=== PATIENT | female | born 1975 | race Caucasian/White ===

== ENCOUNTER 2016-12-10 19:40 | Emergency (ER) | payer OTHER ==
[2016-12-10 19:58] VITALS: BP 121/68
--- NOTE | 2016-12-10 20:59 | RAD ---
INDICATION: Bilateral ankle pain COMPARISON: None. TECHNIQUE: 3 views of the each ankle were obtained. FINDINGS: There is symmetric soft tissue swelling overlying the fibular malleoli. Adjacent to the distal tip of the left fibular malleolus is focal bony density which could represent an avulsion injury in the correct clinical setting. The visualized bones are otherwise intact and appropriately aligned. IMPRESSION: SOFT TISSUE SWELLING OVERLYING THE BILATERAL FIBULAR MALLEOLI. BONY FOCI ADJACENT TO THE DISTAL TIP OF THE LEFT FIBULAR MALLEOLUS COULD BE AN AVULSION FRACTURE IN THE CORRECT CLINICAL SETTING.
--- NOTE | 2016-12-10 22:16 | ED ---
Lower Extremity - HPI Summary HPI Summary: 40F presents with bilateral ankle pain today. She states that she was walking and she twisted her right ankle and then she tried to switch her weight and ended up twisted her left ankle. She has previous fibula avulsion fracture on left. She states pain on right is worst. She denies any numbness or tingling. She is not able to bear weight on right foot but can place some weight on left. She took ibuprofen. - History of Current Complaint Chief Complaint: EDExtremityLower Stated Complaint: ANKLE INJURY(BOTH) Time Seen by Provider: 12/10/16 21:16 Pain Intensity: 5 - Allergies/Home Medications Allergies/Adverse Reactions: Allergies Allergy/AdvReac Type Severity Reaction Status Date / Time Penicillins [PCN] Allergy Hives Verified 01/13/14 20:40 PMH/Surg Hx/FS Hx/Imm Hx Endocrine/Hematology History: Denies: Hx Diabetes Cardiovascular History: Reports: Hx Hypertension Infectious Disease History: No Infectious Disease History: Denies: Traveled Outside the [place] in Last 30 Days - Family History Known Family History: Positive: Cardiac Disease - Social History Alcohol Use: Rare Substance Use Type: Reports: None Smoking Status (MU): Current Some Day Smoker Review of Systems Negative: Fever Negative: Chest Pain Negative: Shortness Of Breath Positive: Myalgia - bilateral ankles All Other Systems Reviewed And Are Negative: Yes Physical Exam Triage Information Reviewed: Yes Vital Signs On Initial Exam: Initial Vitals Temp Pulse Resp BP Pulse Ox 97.3 F 92 18 121/68 97 12/10/16 19:55 12/10/16 19:55 12/10/16 19:55 12/10/16 19:55 12/10/16 19:55 Vital Signs Reviewed: Yes Appearance: Positive: Well-Appearing Skin: Positive: Warm, Dry Head/Face: Positive: Normal Head/Face Inspection Eyes: Positive: Normal, Conjunctiva Clear Respiratory/Lung Sounds: Positive: Clear to Auscultation, Breath Sounds Present Cardiovascular: Positive: Normal, RRR Musculoskeletal: Positive: Limited @ - bilateral ankles, Edema Left - ankle, Edema Right - ankle, Other - good pulses, capillary refill<2secs, tenderness over lateral aspect bilateral ankles, neurovascular intact Diagnostics - Vital Signs Vital Signs Temp Pulse Resp BP Pulse Ox 12/10/16 19:55 97.3 F 92 18 121/68 97 - Laboratory Lab Statement: Any lab studies that have been ordered have been reviewed, and results considered in the medical decision making process. - Radiology ankle Xray Interpretation: Positive (See Comments) - IMPRESSION: SOFT TISSUE SWELLING OVERLYING THE BILATERAL FIBULAR MALLEOLI. BONY FOCI ADJACENT TO THE DISTAL TIP OF THE LEFT FIBULAR MALLEOLUS COULD BE AN AVULSION FRACTURE IN THE CORRECT CLINICAL SETTING. Radiology Interpretation Completed By: Radiologist Lower Extremity Course/Dx - Course Course Of Treatment: 40F presents with bilateral ankle pain today. She states that she was walking and she twisted her right ankle and then she tried to switch her weight and ended up twisted her left ankle. She has previous fibula avulsion fracture on left. She states pain on right is worst. She denies any numbness or tingling. She is not able to bear weight on right foot but can place some weight on left. She took ibuprofen. on exam swelling to bilateral ankle. neurovascular intact. xray possible fibula avulsion left had previous there. will treat as sprain with RICE. patient understands and agrees with plan. - Diagnoses Differential Diagnosis/HQI/PQRI: Positive: Fracture (Closed), Sprain, Strain Provider Diagnoses: bilateral ankle sprain Discharge - Discharge Plan Condition: Good Disposition: HOME Patient Education Materials: Ankle Sprain (ED) Referrals: Vanessa Francois [employer] OPERATOR [Primary Care Provider] - Additional Instructions: Stay off ankle as much as possible Ice, elevate, keep in STACY Ibuprofen every 6 hours for pain Follow up with primary within 7 days Return to ED if develop any new or worsening symptoms
== END 2016-12-10 22:40 | disposition home or self-care (01) ==
LOC: ED 19:40
DX: S93.402A Sprain of unspecified ligament of left ankle, initial encounter (principal); S93.401A Sprain of unspecified ligament of right ankle, initial encounter; X50.1XXA Overexertion from prolonged static or awkward postures, initial encounter; Y93.01 Activity, walking, marching and hiking; Y92.9 Unspecified place or not applicable
CPT/HCPCS: 99283